=== PATIENT | female | born 1985 | race Caucasian/White ===

== ENCOUNTER 2017-04-07 16:19 | Emergency (ER) | payer SELFPAY ==
[2017-04-07 16:25] VITALS: BP 122/75
--- OUTSIDE RECORDS SUMMARY | 2017-04-07 17:42 | XMS REPORT | Continuity of Care Document ---
:1985 Author Organization [facility] ([facility]) Address [address] [place] [address] Phone [phone] Care Team Providers Name Role Phone Shai Veronica Primary Care Provider [phone] Source Comments This disclosure is being made pursuant to the Care Everywhere program, applicable federal and state laws, and may not contain all informaitonavailable regarding this patient.[facility] ([facility]) Active Allergies and Adverse Reactions No Known Allergies Current Medications Prescription Sig. Disp. Refills Start Date End Date Status multivitamin Take by mouth Active with minerals PO daily. FERROUS FUMARATE (IRON Active PO) ibuprofen 600 mg tablet Take 1 tablet 30 tablet 0 12/10/2016 Active (600 mg total) by mouth every 6 hours as needed. qymip-[id number] oil (FISH Take 1 capsule by Active OIL) 1,000 (120-180) mg mouth daily. 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 Overview: Prescription for Valacyclovir given on 10/09/16 to begin taking at 36w Resolved Problems Problem Noted Date Resolved Date Status post vacuum-assisted vaginal delivery 12/10/2016 02/01/2017 Normal in third trimester 10/09/2016 02/01/2017 Overview: Support person(s): - Tommie Pain management plan: : Yes Desires early discharge: Contraception plan: Tdap: A pos, Antibody neg, Pap nml, RI, VDRL non-reactive, HBsAg neg, HIV neg, UDS neg, GC/CT neg, 28w H/H - 11.8/34.2, Plt - 140 Low-lying placenta on 21w anatomy U/S - repeat U/S scheduled for 11/06/16 History of delivery, currently 10/09/2016 02/01/2017 Overview: Desires TOLAC, consent signed 10/09/16. Op note requested 10/27/16 Most Recent Encounters Date Type Specialty Providers Description 01/22/2017 Office Visit Gynecology Goldsmith, Dorothy Huynh MD Dx: Screening for cervical MecKelsey chaparro ARNP cancer (Primary Dx) CNM Immunizations Name Dates Previously Given Next Due Tdap 09/07/2016 Social History Tobacco Use Types Packs/Day Years Used Date Never Smoker Smokeless Tobacco: Never Used Alcohol Use Drinks/Week oz/Week Comments No Last Filed Vital Signs Vital Sign Reading Time Taken Blood Pressure 114/74 01/22/2017 8:49 AM [employer]KTOP SUPPORT SPECIALIST Pulse 73 01/22/2017 8:49 AM DESKTOP SUPPORT SPECIALIST Temperature 35.9 C (96.6 F) 12/10/2016 8:25 AM DESKTOP SUPPORT SPECIALIST Respiratory Rate 16 12/10/2016 8:25 AM DESKTOP SUPPORT SPECIALIST Height 1.702 m (5' 7") 12/07/2016 12:30 AM DESKTOP SUPPORT SPECIALIST Weight 73.2 kg (161 lb 6 oz) 01/22/2017 8:49 AM DESKTOP SUPPORT SPECIALIST Body Mass Index 25.27 01/22/2017 8:49 AM DESKTOP SUPPORT SPECIALIST Oxygen Saturation 99% 12/09/2016 4:15 PM DESKTOP SUPPORT SPECIALIST Plan of Care Health Maintenance Due Date Last Done Comments Hepatitis B Vaccine (1 of 3 - Primary Series) 1985 Lipid Disorder Screening 2003 MMR Vaccine 2003 Influenza Vaccine: Seasonal (#1) 06/29/2016 Cervical Cancer Screening 01/22/2022 01/22/2017 Td Vaccine 09/07/2026 09/07/2016 Tdap Vaccine Completed 09/07/2016 Results from Last 3 Months HUMAN PAPILLOMAVIRUS (HPV) HIGH RISK DNA (01/22/2017 9:16 AM) Component Value Range HPV Specimen Source Liquid Cyto HPV High Risk NegativeComment: Negative Test methodology: PCR amplification; Rashaad HPV Test ([employer] ) The HPV PCR test detects all of the currently identified high risk HPV genotypes (16, 18, 31, 33, 35, 39, 45, 51, 52, 56, 58, 59, 66, and 68) that cause cancer of the cervix and other mucosal sites.HPV High Risk DNA testing of cytology specimens collected in [facility] and of tissue specimens was developed and the performance characteristics determined by the [facility]. This testing has not been cleared or approved by the US Food and Drug Administration. However, the FDA has determined that such approval is not necessary for this test. This test is for clinical purposes. The laboratory is certified under the Clinical Laboratory Improvement Amendments of 1988 as qualified to perform high complexity clinical laboratory testing. Specimen [place], Liquid-Based PAP - Cervix (Endo/Ecto) CYTOLOGY SENIOR MARKETING DATA ANALYST EXAM - PAP TEST (01/22/2017 9:16 AM) Component Value Range Case Report SENIOR MARKETING DATA ANALYST Cytopathology Report Case: [id number] Authorizing Provider:Kelsey Mcdonald ARNPCollected: 01/22/2017 09:16 AM CNNelly Ordering Location: [facility]:Received: 01/22/2017 01:04 PM Gynecology First Screen:Tee Reddy CT(ASCP) Specimen:Cytology Liquid Based PAP , Cervix (Endo/Ecto) Interpretation Negative for intraepithelial lesion or malignancy . Statement of Adequacy Satisfactory for interpretation. Endocervical component present. Specimen Description [facility] vial LMP 02/24/2016 Hormonal Status History of cancer No Previous abnormal No Education Note Pap tests are subject to both false negative and false positive results as evidenced by published data. Obtaining periodic Pap tests may minimize the consequence of false negatives. Your patient's res ults should be interpreted in this context, together with the patient's history and clinical findings. Specimen [place], Liquid-Based PAP - Cervix (Endo/Ecto)
--- NOTE | 2017-04-07 18:06 | ERNOTE ---
Lower Extremity HPI - Narrative Date of Service: 04/07/17 - General Lower Extremities Pain: leg: right Time Seen by Provider: 04/07/17 17:31 Source: patient Exam Limitations: no limitations - Immun/Allergies/Home Medications Immunizations: IMMUNIZATION HX Immunizations Up to Date Yes History of Influenza Vaccine No Allergies/Adverse Reactions: Allergies Allergy/AdvReac Type Severity Reaction Status Date / Time No Known Allergies Allergy Verified 04/07/17 16:26 Home Medications: HOME MEDICATIONS NK [No Home Medication] 04/07/17 [Last Taken Unknown] - History of Present Illness Narrative: Pt. comes in with large lump behind her R leg that she obtained from her horses lead rope weight when it hit the back of her leg 6 hours ago. Pt. states that her leg is not only painful where it is bruised and where she has a lump but also directly behind her knee and behind her calf. Pt. denies any SOB, numbness or tingling, prehospital treatment, alleviating or aggravating factors. Review of Systems - Review of Systems Constitutional: Present: no symptoms reported. Absent: fever, chills, weakness , fatigue, malaise EYE: Present: no symptoms reported ENT: Present: no symptoms reported Respiratory: Present: no symptoms reported. Absent: shortness of breath, cough , wheezing Cardiology: Present: no symptoms reported. Absent: chest pain, palpitations, edema Gastrointestinal/Abdominal: Present: no symptoms reported. Absent: nausea, vomiting, diarrhea Genitourinary: Present: no symptoms reported Musculoskeletal: Present: muscle pain - R calf. Absent: joint pain Skin: Present: no symptoms reported Neurological: Present: no symptoms reported. Absent: headache, dizziness/light- headedness, numbness, tingling All Other Systems: All systems neg except as marked - Patient's Past Medical History Patient History - Medical: No pertinent hx Patient History - Cardiac/Respiratory: No pertinent hx Patient History - Cancer: No Hx of Cancer Patient History - Surgical Procedures: Patient History - Other: None - Social History Living Situations: home Psych History: No pertinent hx Smoking Status: Never smoker Have you smoked in the past 12 months: No Do you dip or chew tobacco: No - Immunizations Immunizations Up to Date: Yes History of Influenza Vaccine: No Physical Exam - Physical Exam General Appearance: Present: wd/wn, alert, no apparent distress Eye Exam: Normal inspection: bilateral, PERRL: bilateral, EOMI: bilateral Ears, Nose, Throat: Present: normal ENT inspection, normal pharynx Neck: Present: normal inspection, nontender. Absent: lymphadenopathy (R), lymphadenopathy (L) Respiratory: Present: no respiratory distress, normal breath sounds, no accessory muscle use, chest nontender, lungs clear Cardiovascular/Chest: Present: regular rate, rhythm, no murmur, normal peripheral pulses Gastrointestinal/Abdominal: Present: normal bowel sounds, nontender Back Exam: Present: normal inspection Extremity Exam: Present: calf tenderness - R just below knee. Absent: pedal edema Neurological Exam: Present: alert, oriented, normal mood/affect, no motor/ sensory deficits, molecular spectroscopist II-XII nml as tested, normal cerebellar test Skin Exam: Present: normal color, warm/dry, other - redness and bruising R calf 4cm in diameter. Absent: pallor, skin rash ED Progress - Vital Signs Patient's Vital Signs:: I have reviewed the patient's vital signs. Vital Signs: Vital Signs 04/07/17 16:22 Temperature 36.8 C Pulse Rate 75 Respiratory 18 Rate Blood Pressure 122/75 O2 Sat by Pulse 99 Oximetry - CT/Ultrasound CT/Ultrasound Narrative: US negative for DVT - Progress/Reassessment Chief Complaint: Lower Extremity Pain/ Injury Progress:: Unchanged Departure Clinical Impression: Hematoma - Departure Disposition: Home self-care Condition: Good Instructions: Hematoma, [id number] Additional Instructions: May use heat to decrease the swelling and pain please keep R leg elevated to aid in blood flow may return to normal activities tomorrow and follow up with primary provider in 2-3 days if not improved.
== END 2017-04-07 18:06 | disposition home or self-care (01) ==
LOC: ER 16:19
DX: S80.11XA Contusion of right lower leg, initial encounter (principal); X58.XXXA Exposure to other specified factors, initial encounter; Y93.89 Activity, other specified; Y92.9 Unspecified place or not applicable